=== PATIENT | female | born 1960 | race Two or more races ===

== ENCOUNTER → 2017-10-18 16:45 | Outpatient (CLI) | payer OTHER ==
[~2017-10-18] VITALS: Ht 152.4 cm; Wt 61.2 kg
[~2017-10-18 16:45] MED LIST: CLEOCIN HCL300 MG PO; FLONASE16 GM NS; GILTUSS TR TAB1 EACH PO; OFLOXACIN5 ML OTIC; PEPCID40 MG PO; PROTONIX40 MG; PROTONIX40 MG PO; SWIM EAR DROPS30 ML OT; TOBREX5 ML OP; ZITHROMAX500 MG PO; ZYRTEC10 MG PO
== END | disposition home or self-care (01) ==
LOC: PPHC 16:45
DX: I10 Essential (primary) hypertension (principal); F41.8 Other specified anxiety disorders

== ENCOUNTER → 2018-01-23 | Outpatient (CLI) | payer OTHER | END | disposition home or self-care (01) | LOC: PPHC 09:41 | DX: H10.12 Acute atopic conjunctivitis, left eye (principal) ==

== ENCOUNTER 2018-05-08 07:13 | Outpatient (CLI) | payer OTHER | END 2018-05-08 08:46 | disposition home or self-care (01) | LOC: LAB 07:13 | DX: R10.9 Unspecified abdominal pain (principal); R42 Dizziness and giddiness; R10.2 Pelvic and perineal pain ==

== ENCOUNTER → 2018-05-09 07:33 | Outpatient (CLI) | payer OTHER | END | disposition home or self-care (01) | LOC: LAB 07:33 | DX: R10.9 Unspecified abdominal pain (principal); R42 Dizziness and giddiness ==

== ENCOUNTER 2018-06-04 14:22 | Outpatient (CLI) | payer OTHER ==
[~2018-06-04] VITALS: Ht 152.4 cm; Wt 61.2 kg
== END 2018-06-04 14:40 | disposition home or self-care (01) ==
LOC: OFIC 805 14:22
DX: H61.23 Impacted cerumen, bilateral (principal); L30.8 Other specified dermatitis

== ENCOUNTER 2018-06-13 15:19 | Outpatient (CLI) | payer OTHER | END 2018-06-13 15:30 | disposition home or self-care (01) | LOC: LAB 15:19 | DX: N95.1 Menopausal and female climacteric states (principal); D50.8 Other iron deficiency anemias ==

== ENCOUNTER 2018-06-15 14:05 | Outpatient (CLI) | payer OTHER | END 2018-06-15 15:00 | disposition home or self-care (01) | LOC: NUCLEAR 14:05 | DX: M81.0 Age-related osteoporosis without current pathological fracture (principal) ==

== ENCOUNTER 2018-06-20 14:55 | Outpatient (CLI) | payer OTHER | END 2018-06-20 14:57 | disposition home or self-care (01) | LOC: LAB 14:55 | DX: N39.0 Urinary tract infection, site not specified (principal) ==

== ENCOUNTER 2018-12-17 11:55 | Outpatient (CLI) | payer OTHER ==
[~2018-12-17] VITALS: Ht 152.4 cm; Wt 61.2 kg
== END 2018-12-17 12:11 | disposition home or self-care (01) ==
LOC: OFIC 805 11:55
DX: H61.23 Impacted cerumen, bilateral (principal); L29.9 Pruritus, unspecified

== ENCOUNTER 2019-04-04 07:11 | Outpatient (CLI) | payer OTHER ==
[~2019-04-04] VITALS: Ht 152.4 cm; Wt 60.3 kg
== END 2019-04-04 07:25 | disposition home or self-care (01) ==
LOC: OFIC 805 07:11
DX: L30.9 Dermatitis, unspecified (principal); H61.23 Impacted cerumen, bilateral

== ENCOUNTER 2019-06-19 12:09 | Outpatient (CLI) | payer OTHER ==
[~2019-06-19] VITALS: Ht 152.4 cm; Wt 56.7 kg
[2019-06-19] MEDS ORDERED: DERMOTIC20 ML OTIC (13:04)
== END 2019-06-19 13:51 | disposition home or self-care (01) ==
LOC: OFIC 805 12:09
DX: H60.543 Acute eczematoid otitis externa, bilateral (principal); L29.8 Other pruritus; H61.23 Impacted cerumen, bilateral; J31.0 Chronic rhinitis

== ENCOUNTER 2019-07-10 11:56 | Outpatient (CLI) | payer OTHER ==
[~2019-07-10] VITALS: Ht 152.4 cm; Wt 56.7 kg
[~2019-07-10 11:56] MED LIST changes: +DERMOTIC20 ML OTIC
== END 2019-07-10 12:49 | disposition home or self-care (01) ==
LOC: OFIC 805 11:56
DX: L29.8 Other pruritus (principal); J31.0 Chronic rhinitis; H60.543 Acute eczematoid otitis externa, bilateral

== ENCOUNTER 2019-09-25 11:55 | Outpatient (CLI) | payer OTHER ==
[~2019-09-25] VITALS: Ht 152.4 cm; Wt 56.7 kg
== END 2019-09-25 15:37 | disposition home or self-care (01) ==
LOC: OFIC 805 11:55
DX: J31.0 Chronic rhinitis (principal); L29.8 Other pruritus; H61.23 Impacted cerumen, bilateral

== ENCOUNTER 2019-10-28 07:00 | Outpatient (CLI) | payer OTHER | END 2019-10-28 15:21 | disposition home or self-care (01) | LOC: LAB 07:00 | DX: Z00.00 Encounter for general adult medical examination without abnormal findings (principal) ==

== ENCOUNTER → 2019-10-28 | Outpatient (CLI) | payer OTHER | END | disposition home or self-care (01) | LOC: RAD 07:17 | DX: J06.9 Acute upper respiratory infection, unspecified (principal) ==

== ENCOUNTER → 2020-02-26 | Outpatient (CLI) | payer OTHER ==
[~2020-02-26] MED LIST changes: +NEO-POLYMYXIN-H10 M1 OTIC
== END | disposition home or self-care (01) ==
LOC: OFIC 805 14:00
DX: L29.8 Other pruritus (principal); H61.23 Impacted cerumen, bilateral; H60.8X2 Other otitis externa, left ear

== ENCOUNTER 2020-03-09 09:26 | Outpatient (CLI) | payer OTHER ==
[~2020-03-09] VITALS: Ht 152.4 cm; Wt 56.7 kg
== END 2020-03-09 10:52 | disposition home or self-care (01) ==
LOC: OFIC 805 09:26
PROVIDERS: ATTEND Otolaryngology
DX: H81.12 Benign paroxysmal vertigo, left ear (principal)

== ENCOUNTER 2020-03-24 08:44 | Outpatient (CLI) | payer OTHER | END 2020-03-24 18:08 | disposition home or self-care (01) | LOC: OFIC 805 08:44 | PROVIDERS: ATTEND Otolaryngology | DX: H81.12 Benign paroxysmal vertigo, left ear (principal) ==

== ENCOUNTER 2020-05-18 13:23 | Outpatient (CLI) | payer OTHER | END 2020-05-18 15:00 | disposition home or self-care (01) | LOC: CERTIFICAD 13:23 | DX: Z11.1 Encounter for screening for respiratory tuberculosis (principal) ==

== ENCOUNTER → 2020-06-23 08:00 | Outpatient (CLI) | payer OTHER | END | disposition home or self-care (01) | LOC: PPH VACUNA 08:00 | DX: Z23 Encounter for immunization (principal) ==

== ENCOUNTER → 2020-07-18 08:47 | Outpatient (CLI) | payer OTHER | END | disposition home or self-care (01) | LOC: LAB 08:47 | PROVIDERS: ATTEND Emergency Medicine | DX: E55.9 Vitamin D deficiency, unspecified (principal) ==

== ENCOUNTER → 2020-07-24 15:48 | Outpatient (CLI) | payer OTHER | END | disposition home or self-care (01) | LOC: LAB 14:52 | PROVIDERS: ATTEND Internal Medicine Cardiovascular Disease | DX: N80.8 Other endometriosis (principal) ==

== ENCOUNTER 2020-08-05 13:55 | Outpatient (CLI) | payer OTHER | END 2020-08-05 14:15 | disposition home or self-care (01) | LOC: NUCLEAR 13:55 | PROVIDERS: ATTEND Internal Medicine Cardiovascular Disease | DX: M81.0 Age-related osteoporosis without current pathological fracture (principal) ==

== ENCOUNTER 2020-09-02 07:59 | Emergency (ER) | payer OTHER ==
[~2020-09-02] VITALS: Ht 160 cm; Wt 86.2 kg
== END 2020-09-02 11:59 | disposition home or self-care (01) ==
LOC: ER 07:59
DX: U07.1 COVID-19 (principal); B34.9 Viral infection, unspecified

== ENCOUNTER → 2020-10-13 | Outpatient (CLI) | payer OTHER | END | disposition home or self-care (01) | LOC: OFIC 805 10:00 | PROVIDERS: ATTEND Otolaryngology | DX: R42 Dizziness and giddiness (principal) ==

== ENCOUNTER 2020-12-04 08:29 | Outpatient (CLI) | payer OTHER | END 2020-12-04 08:39 | disposition home or self-care (01) | LOC: TOM 08:29 | PROVIDERS: ATTEND General Practice | DX: N20.0 Calculus of kidney (principal); R10.30 Lower abdominal pain, unspecified; K76.0 Fatty (change of) liver, not elsewhere classified; D25.2 Subserosal leiomyoma of uterus; K57.90 Diverticulosis of intestine, part unspecified, without perforation or abscess without bleeding ==

== ENCOUNTER → 2020-12-08 15:09 | Outpatient (CLI) | payer OTHER | END | disposition home or self-care (01) | LOC: LAB 12-03 15:15 | PROVIDERS: ATTEND General Practice | DX: R10.30 Lower abdominal pain, unspecified (principal) ==

== ENCOUNTER 2020-12-11 13:39 | Outpatient (CLI) | payer OTHER | END 2020-12-11 13:43 | disposition home or self-care (01) | LOC: LAB 13:39 | PROVIDERS: ATTEND General Practice | DX: R10.30 Lower abdominal pain, unspecified (principal) ==

== ENCOUNTER 2021-02-02 13:27 | Outpatient (CLI) | payer OTHER | END 2021-02-02 13:37 | disposition home or self-care (01) | LOC: RAD 13:27 | PROVIDERS: ATTEND General Practice | DX: M25.511 Pain in right shoulder (principal) ==

== ENCOUNTER 2021-02-08 14:08 | Outpatient (CLI) | payer OTHER | END 2021-02-08 15:36 | disposition home or self-care (01) | LOC: LAB 14:08 | PROVIDERS: ATTEND Radiology Diagnostic Radiology | DX: R19.03 Right lower quadrant abdominal swelling, mass and lump (principal) ==

== ENCOUNTER 2021-02-10 07:29 | Outpatient (CLI) | payer OTHER | END 2021-02-10 07:30 | disposition home or self-care (01) | LOC: MRI 07:29 | PROVIDERS: ATTEND Obstetrics & Gynecology | DX: R19.04 Left lower quadrant abdominal swelling, mass and lump (principal); R19.03 Right lower quadrant abdominal swelling, mass and lump; D25.1 Intramural leiomyoma of uterus | CPT/HCPCS: 72196 ==

== ENCOUNTER 2021-02-18 14:03 | Outpatient (CLI) | payer OTHER | END 2021-02-18 14:12 | disposition home or self-care (01) | LOC: MAMO-SONO 14:03 | PROVIDERS: ATTEND Obstetrics & Gynecology | DX: Z12.31 Encounter for screening mammogram for malignant neoplasm of breast (principal); N60.11 Diffuse cystic mastopathy of right breast; N60.12 Diffuse cystic mastopathy of left breast ==

== ENCOUNTER → 2021-07-06 | Outpatient (CLI) | payer OTHER | END | disposition home or self-care (01) | LOC: PPH VACUNA 09:00 | PROVIDERS: ATTEND Emergency Medicine Pediatric Emergency Medicine | DX: Z23 Encounter for immunization (principal) ==

== ENCOUNTER 2022-01-19 08:29 | Outpatient (CLI) | payer OTHER | END 2022-01-19 15:57 | disposition home or self-care (01) | LOC: LAB 08:29 | PROVIDERS: ATTEND General Practice | DX: R05.9 Cough, unspecified (principal); R50.9 Fever, unspecified; R06.02 Shortness of breath; Z20.822 Contact with and (suspected) exposure to COVID-19 ==

== ENCOUNTER 2022-03-03 07:21 | Outpatient (CLI) | payer OTHER | END 2022-03-03 07:45 | disposition home or self-care (01) | LOC: RAD 07:21 | PROVIDERS: ATTEND Orthopaedic Surgery | DX: M79.642 Pain in left hand (principal) ==

== ENCOUNTER 2022-03-15 07:18 | Outpatient (CLI) | payer OTHER | END 2022-03-15 07:35 | disposition home or self-care (01) | LOC: SONOGRAMA 07:18 | PROVIDERS: ATTEND Orthopaedic Surgery | DX: M25.532 Pain in left wrist (principal) ==

== ENCOUNTER 2022-03-31 07:01 | Outpatient (CLI) | payer OTHER | END 2022-03-31 08:10 | disposition home or self-care (01) | LOC: RAD 07:01 | PROVIDERS: ATTEND Orthopaedic Surgery | DX: M25.532 Pain in left wrist (principal) ==

== ENCOUNTER 2022-06-08 13:52 | Outpatient (CLI) | payer OTHER | END 2022-06-08 13:57 | disposition home or self-care (01) | LOC: PPH VACUNA 13:52 | PROVIDERS: ATTEND Emergency Medicine Pediatric Emergency Medicine | DX: Z23 Encounter for immunization (principal) ==

== ENCOUNTER → 2022-08-29 07:31 | Outpatient (CLI) | payer OTHER | END | disposition home or self-care (01) | LOC: LAB 07:31 | PROVIDERS: ATTEND Orthopaedic Surgery | DX: Z76.89 Persons encountering health services in other specified circumstances (principal); I10 Essential (primary) hypertension; D64.9 Anemia, unspecified; E88.9 Metabolic disorder, unspecified; D68.8 Other specified coagulation defects; N39.0 Urinary tract infection, site not specified; E11.9 Type 2 diabetes mellitus without complications ==

== ENCOUNTER → 2022-09-07 08:00 | Outpatient (CLI) | payer OTHER | END | disposition home or self-care (01) | LOC: LAB 08:00 → CIR.AMB 09-12 09:27 → EDSTATUS 09-12 15:00 | PROVIDERS: ATTEND Orthopaedic Surgery | DX: Z03.818 Encounter for observation for suspected exposure to other biological agents ruled out (principal) ==

== ENCOUNTER 2022-12-22 14:11 | Outpatient (CLI) | payer OTHER | END 2022-12-22 14:20 | disposition home or self-care (01) | LOC: LAB 14:11 | PROVIDERS: ATTEND General Practice | DX: N39.0 Urinary tract infection, site not specified (principal) ==

== ENCOUNTER 2022-12-24 18:56 | Emergency (ER) | payer OTHER ==
[~2022-12-24] VITALS: Ht 157.5 cm; Wt 66.2 kg
== END 2022-12-25 00:46 | disposition home or self-care (01) ==
LOC: ER 18:56
DX: N20.0 Calculus of kidney (principal); R10.2 Pelvic and perineal pain; Z88.2 Allergy status to sulfonamides; N13.30 Unspecified hydronephrosis; K57.30 Diverticulosis of large intestine without perforation or abscess without bleeding; D25.9 Leiomyoma of uterus, unspecified

== ENCOUNTER 2023-07-14 10:42 | Outpatient (CLI) | payer OTHER | END 2023-07-14 10:52 | disposition home or self-care (01) | LOC: PPH VACUNA 10:42 | PROVIDERS: ATTEND Emergency Medicine Pediatric Emergency Medicine | DX: Z23 Encounter for immunization (principal) ==

== ENCOUNTER 2023-09-11 11:33 | Emergency (ER) | payer OTHER ==
[~2023-09-11] VITALS: Ht 160 cm; Wt 65.8 kg
[2023-09-11] MEDS ORDERED: DICLOFENAC SODI75 MG PO (13:37)
== END 2023-09-11 13:43 | disposition home or self-care (01) ==
LOC: ER 11:34
DX: M25.562 Pain in left knee (principal); W18.30XA Fall on same level, unspecified, initial encounter; Y93.9 Activity, unspecified; Y92.9 Unspecified place or not applicable; Y99.9 Unspecified external cause status

== ENCOUNTER 2024-08-22 11:00 | Outpatient (CLI) | payer OTHER ==
[~2024-08-22 11:00] MED LIST changes: +DICLOFENAC SODI75 MG PO
== END 2024-08-22 11:15 | disposition home or self-care (01) ==
LOC: PPH VACUNA 11:00
PROVIDERS: ATTEND Emergency Medicine Pediatric Emergency Medicine
DX: Z23 Encounter for immunization (principal)

== ENCOUNTER 2025-02-04 07:44 | Outpatient (CLI) | payer OTHER | END 2025-02-04 07:46 | disposition home or self-care (01) | LOC: RAD 07:44 | PROVIDERS: ATTEND Internal Medicine Cardiovascular Disease | DX: M12.9 Arthropathy, unspecified (principal) ==